=== PATIENT | female | born 1965 | race Caucasian/White ===

== ENCOUNTER 2019-05-19 09:20 | Emergency (ER) | payer MEDICAID ==
[~2019-05-19] VITALS: Ht 154.9 cm; Wt 70.0 kg
[~2019-05-19 09:20] MED LIST: GABA-532 PO; HYDR25TA4 PO; IBUP-1986 PO; MONT10TA24 PO; ZOLP10TA PO
--- NOTE | 2019-05-19 10:25 | NUR ---
Pt ambulatory with slow but steady gait. Pt assisted by this nurse and significant other to the restroom and back to the room.
[2019-05-19 10:38] VITALS: BP 167/100
== END 2019-05-19 10:40 | disposition home or self-care (01) ==
LOC: ER 09:20
DX: S00.83XA Contusion of other part of head, initial encounter (principal); S50.02XA Contusion of left elbow, initial encounter; R20.0 Anesthesia of skin; Z79.2 Long term (current) use of antibiotics; Z79.899 Other long term (current) drug therapy; W18.39XA Other fall on same level, initial encounter; Y93.89 Activity, other specified; Y92.89 Other specified places as the place of occurrence of the external cause; Y99.8 Other external cause status
CPT/HCPCS: 99284